=== PATIENT | female | born 1960 | race Caucasian/White ===

== ENCOUNTER 2019-07-25 06:55 | Day surgery (SDC) | payer OTHER, BC ==
[2019-07-25] MEDS ORDERED: PROPOFOL 60 ML (08:47)
[2019-07-25] MEDS ORDERED: LIDOCAINE 2% (SDV) 5 ML INJ (08:47)
[2019-07-25] MEDS ORDERED: FENTAnyl 50 MCG/ML VIAL IV (10:00)
== END 2019-07-25 10:09 | disposition home or self-care (01) ==
LOC: GIL 06:55
DX: Z12.11 Encounter for screening for malignant neoplasm of colon (principal); K64.8 Other hemorrhoids; D12.2 Benign neoplasm of ascending colon; D12.5 Benign neoplasm of sigmoid colon; K44.9 Diaphragmatic hernia without obstruction or gangrene; K21.9 Gastro-esophageal reflux disease without esophagitis; I10 Essential (primary) hypertension; E11.9 Type 2 diabetes mellitus without complications; E03.9 Hypothyroidism, unspecified; J45.909 Unspecified asthma, uncomplicated
CPT/HCPCS: 43239; 82962; 88305